=== PATIENT | male | born 1970 | race Caucasian/White ===

== ENCOUNTER 2017-03-15 13:05 | Emergency (ER) | payer SELFPAY ==
[2017-03-15] MEDS ORDERED: PROPARACAINE HCL OPTH 15ML BTL OPTH ONE (13:18)
[2017-03-15] MEDS ORDERED: Diph,Pert(Acell),Tet Vac 0.5 ML SYR IM ONE (13:41)
--- NOTE | 2017-03-15 13:44 | Emergency Department Record ---
History of Present Illness - General Chief complaint: Eye Problem Stated complaint: EYE PROBLEM Time Seen by Provider: 03/15/17 13:16 Source: Patient Mode of Arrival: Ambulatory Limitations: No limitations - History of Present Illness Initial comments: The patient thinks he got a foreign body in the R eye this AM and now the eye is very irritated. He did try to flush it out but it did not help. There was no trauma or injury. MD chief complaint: Eye pain, Eye redness, Foreign body Onset/Timin -: Hour(s) Onset Description: Sudden Location: Right eye Eye Symptoms: Burning, Blurry vision, Foreign body sensation, Pain, Redness Severity: Moderate Severity scale (1-10): 7 If Pain, Quality: Aching Consistency: Constant Associated Symptoms: None Treatments Prior to Arrival: Irrigated eye - Related Data Visual acuity (L) = 20/: 40 Visual acuity (R) = 20/: 50 With correction: Yes Home Medications Medication Instructions Recorded Confirmed Last Taken No Home Med [NO HOME MEDS] 03/15/17 03/15/17 Unknown Allergies Allergy/AdvReac Type Severity Reaction Status Date / Time No Known Drug Allergies Allergy Verified 03/15/17 13:11 Travel Screening - Travel/Exposure Within Last 30 Days Have you traveled within the last 30 days?: No Review of Systems Constitutional: Denies: Chills, Fever Eyes: Reports: Eye pain. Denies: Eye discharge Past Medical History - SOCIAL HISTORY Smoking Status: Never smoker Alcohol Use: None Drug Use: None - RESPIRATORY Hx Respiratory Disorders: No - CARDIOVASCULAR Hx Cardio Disorders: No - NEURO Hx Neuro Disorders: No - GI Hx GI Disorders: No - Hx Genitourinary Disorders: No - ENDOCRINE Hx Endocrine Disorders: No - MUSCULOSKELETAL Hx Musculoskeletal Disorders: No - PSYCH Hx Psych Problems: No - HEMATOLOGY/ONCOLOGY Hx Hematology/Oncology Disorders: No Family Medical History Any Significant Family History?: No Physical Exam - General General Appearance: Alert, Oriented x3, Cooperative, No acute distress - Head Head exam: Atraumatic, Normocephalic, Normal inspection - Eye Eye exam: PERRL, Conjunctival injection (2+ R eye.), EOMI, Other (There is a FB at the 12:00 position of the R cornea. There is no FB on lid eversion.). negative: Normal appearance, Periorbital swelling, Periorbital tenderness With correction: Yes Course Vital Signs 03/15/17 13:08 Temperature 98.3 F Pulse Rate 88 Respiratory 20 Rate Blood Pressure 186/108 Pulse Ox 98 - Reevaluation(s) Reevaluation #1: I did discuss the case with Dr. Dorantes in the [facility] and he will work the patient into his schedule this afternoon. 03/15/17 13:43 Reevaluation #2: The patient is doing very well at this time. I did ask him about his BP and he states it has been running high for some time. He denies any CP, SOB, SINGLETARY, or weakness. I do believe the patient's BP is probably higher than normal due to his eye pain. He will be discharged to the [facility] and will see Dr. Dorantes for his eye. He also is to F/U with a PCP for further evaluation of his BP. 03/15/17 14:19 Disposition Disposition: Discharge Clinical Impression: Corneal foreign body Qualifiers: Encounter type: initial encounter Laterality: right Qualified Code(s): T15.01XA - Foreign body in cornea, right eye, initial encounter Hypertension Qualifiers: Hypertension type: unspecified Qualified Code(s): I10 - Essential (primary) hypertension Disposition: Home, Self-Care Condition: (2) Stable Instructions: Eye Foreign Body (ED) Additional Instructions: Please proceed over to the [facility] for further evaluation with Dr. Dorantes. Please also see a primary care provider for further evaluation of your BP. Return to the ER for any worsening problems, head pain, visual changes, Chest pain or trouble breathing. Forms: Patient Portal Access Time of Disposition: 14:22 Quality - Quality Measures Quality Measures: N/A - Blood Pressure Screening View Details: Yes Does Patient Have Any of the Following: No Blood Pressure Classification: Hypertensive Reading Systolic Measurement: 186 Diastolic Measurement: 108 Screening for High Blood Pressure: < First Hypertensive BP, F/U Documented > [ [id number]] First Hypertensive Follow-up Interventions: Referral to alternative/primary care provider.
== END 2017-03-15 14:29 | disposition home or self-care (01) ==
LOC: ER 13:05
DX: T15.01XA Foreign body in cornea, right eye, initial encounter (principal); I10 Essential (primary) hypertension; X58.XXXA Exposure to other specified factors, initial encounter; Y92.63 Factory as the place of occurrence of the external cause; Y99.0 Civilian activity done for income or pay
CPT/HCPCS: 90715; 96372; 99283